=== PATIENT | female | born 1955 | race Hispanic/Latino ===

== ENCOUNTER → 2017-08-17 | Outpatient (CLI) | payer OTHER ==
--- NOTE | 2017-08-18 06:49 | MRI ---
EXAM DESCRIPTION: Knee,Left: MRI. CLINICAL HISTORY: PROLONG KNEE PAIN COMPARISON: None. TECHNIQUE: Multiplanar, high-field MRI, multiple sequences, without contrast: Left knee. FINDINGS: Abnormal signal in the posterior horn medial meniscus extending to the inferior articular surface and into the body of the meniscus.. Minimal outward migration of the anterior horn of the meniscus. Minimal joint space loss medially. Moderate chondromalacia with no subchondral edema but minimal effusion. Effusion lateral joint space. Questionable fluid signal anterior central root attachment of the lateral meniscus. Minimal chondromalacia lateral cartilage but no subchondral edema. Minimal edema posterior. Laxity in the anterior cruciate ligament with intermediate signal and intercruciate space effusion. Normal signal in the posterior cruciate ligament. Medial collateral ligament and elements of the lateral collateral ligament complex are unremarkable. Normal signal in the iliotibial band. Suprapatellar effusion. Mild to moderate chondromalacia in the lateral patellar facet. Small ulcer 2 lesion on the medial trochlear cartilage. Edema in the proximal patellar tendon at the insertion on the inferior patella with edema. Anterior to the tendon. Normal signal in the quadriceps tendon. Patellar soft tissue restraints are negative. IMPRESSION: 1. Horizontal inferior tear of the posterior horn of the medial meniscus extending into the body of the meniscus. Minimal chondromalacia and effusion but no subchondral lesion medially. Chondromalacia lateral compartment with effusion. 2. Mild sprain of the ACL with Intra-cruciate space effusion. Other ligaments are intact. 3. Proximal patellar tendinitis with effusion and edema. Chondromalacia lateral patellar facet. Focal cartilage posterior to the lesion without subchondral edema on the medial femoral trochlea cartilage. Electronically signed by: Ivan Palomo MD 08/18/2017 6:48 AM CDT
== END ==
LOC: MRI 14:08
PROVIDERS: ATTEND Nurse Practitioner Family
DX: S83.242A Other tear of medial meniscus, current injury, left knee, initial encounter (principal)